=== PATIENT | male | born 1985 | race Caucasian/White ===

== ENCOUNTER 2018-08-12 22:58 | Emergency (ER) | payer SELFPAY ==
--- NOTE | 2018-08-13 00:27 | ED.PDOC ---
History of Present Illness - General Chief Complaint: ENT Problem Stated Complaint: dental pain Time Seen by Provider: 08/13/18 00:23 Source: patient Exam Limitations: no limitations - History of Present Illness Initial Comments: Rogelio Corrales 33 y/o male stated that he had been having dull dental pain for the last 3 days and called up dentist today for appointment but it will take 2 weeks to be seen. Timing/Duration: gradual, other - 3 days Severity: moderate EENT Location: dental Prearrival Treatment: over the counter meds Presenting Symptoms: dental pain Improving Factors: nothing Worsening Factors: eating Associated Symptoms: tooth pain Home Medications: Ambulatory Orders Acetamin W/Cod #3 Tab [Tylenol w/CODEINE #3] 1 ea PO Q8HRS PRN #3 tab 08/13/18 Clindamycin HCl 150 mg PO TID #30 cap 08/13/18 Review of Systems - Review of Systems EENTM: States: see HPI Respiratory: States: no symptoms reported Cardiology: States: no symptoms reported Gastrointestinal/Abdominal: States: no symptoms reported Genitourinary: States: no symptoms reported Musculoskeletal: States: no symptoms reported Skin: States: no symptoms reported Neurological: States: no symptoms reported Past Medical History (General) - Patient Medical History Hx Seizures: No Hx Asthma: No Surgical History: no surgical history - Social History Hx Physical Abuse: No Hx Emotional Abuse: No Family Medical History - Family History Father Family History: No Known Physical Exam - Physical Exam General Appearance: Alert, No apparent distress Eye Exam: bilateral normal Ear Exam: bilateral ear: auricle normal, canal normal, TM normal Nasal Exam: normal inspection Throat Exam: pharynx normal, dental tenderness - with multiple decayed teeth Neck: non-tender, supple, normal inspection, trachea midline Cardiovascular/Respiratory: regular rate, rhythm, no M/R/G, no JVD Abdominal Exam: non-tender Neurologic: alert, oriented x 3 Skin Exam: normal color, warm/dry Departure - Departure Clinical Impression: Pain due to dental caries, Dental caries extending into dentin Time of Disposition: 00:46 Disposition: Discharge to Home or Self Care Condition: Fair Departure Forms: ED Discharge - Pt. Copy, Patient Portal Self Enrollment Instructions: Tooth Decay, Adult, Tooth Abscess (DC), Tooth Decay, Adult (DC), Dental Pain (DC) Diet: other - SOFT DIET ONLY until seen by dentist Prescriptions: Acetamin W/Cod #3 Tab [Tylenol w/CODEINE #3] 1 ea PO Q8HRS PRN #3 tab PRN Reason: Pain Clindamycin HCl 150 mg PO TID #30 cap Home Medications: Ambulatory Orders Acetamin W/Cod #3 Tab [Tylenol w/CODEINE #3] 1 ea PO Q8HRS PRN #3 tab 08/13/18 Clindamycin HCl 150 mg PO TID #30 cap 08/13/18 Additional Instructions: Keep appointment with dentist;Follow up with primary Md 18 August 2018 as needed
[2018-08-13 00:37] VITALS: TEMP 97; O2SAT 100
[2018-08-13] MEDS ORDERED: CLINDAMYCIN PHOSPHATE 150 MG/ML VIAL IM ONE (00:42)
[2018-08-13] MEDS ORDERED: GABAPENTIN 300 MG CAP PO ONE (00:42)
[2018-08-13] MEDS ORDERED: CLINDAMYCIN HCL CAP 150 MG CAP PO ONE (00:42)
[2018-08-13] MEDS ORDERED: HYDROcodone 10MG/APAP 325MG 1 EA TAB PO ONE (00:42)
[2018-08-13] MEDS ORDERED: HYDROCOD/APAP 7.5/325 (ER DISP) #3 TAB PO ONE (00:44)
[2018-08-13 01:27] VITALS: BP 130/82
== END 2018-08-13 01:26 | disposition home or self-care (01) ==
LOC: ER 22:58
DX: K02.9 Dental caries, unspecified (principal)